=== PATIENT | female | born 1955 | race Caucasian/White ===

== ENCOUNTER 2024-04-03 09:17 | Emergency (ER) | payer MEDICARE, SELFPAY ==
[2024-04-03 09:32] VITALS: BP 129/84; PULSE 79; RESP 20; TEMP 36.8; O2SAT 98
--- NOTE | 2024-04-03 09:58 | ED.DENTAL ---
HPI - Dental/Oral General Chief complaint: Dental/Oral Stated complaint: Absess Tooth Time Seen by Provider: 04/03/24 09:58 Source: patient, RN notes reviewed and old records reviewed Mode of arrival: ambulatory Limitations: no limitations History of Present Illness HPI Narrative: 69-year-old female to [facility] Care with complaint of right upper dental pain for 2 days. Patient reports that she does not have a dentist and is going to start looking for one soon. Patient denies drainage, fever, difficulty breathing, difficulty swallowing , allergies. Patient able to tolerate fluids by mouth. Patient resting comfortably in exam room in no acute distress. Respirations even and nonlabored. Related Data Home Medications Medication Instructions Recorded Confirmed losartan 25 mg tablet 25 mg PO DAILY 04/03/24 04/03/24 ropinirole 0.25 mg tablet 0.25 mg PO DAILY 04/03/24 04/03/24 Allergies Allergy/AdvReac Type Severity Reaction Status Date / Time No Known Allergies Allergy Verified 04/03/24 09:48 Review of Systems Review of Systems: All systems reviewed & are unremarkable except as noted in HPI and below Constitutional: Constitutional: Reports no additional constitutional complaints Eyes: Eyes: Reports no additional eye complaints ENT: Reports as per HPI and Reports dental pain Cardiovascular: Cardiovascular: Reports no additional cardiovascular complaints, Denies chest pain and Denies dyspnea Respiratory: Respiratory: Reports no additional respiratory complaints, Denies cough and Denies dyspnea Musculoskeletal: Musculoskeletal: Reports no additional musculoskeletal complaints Neurologic: Reports system reviewed and no additional complaints, except as documented Psychiatric: Psychiatric: Reports no additional psychiatric complaints PMFSH Comments At the time of my signature, I reviewed and agree with the nursing past medical, surgical, social, and family history. There is no relevant family history pertinent to the patient complaint. Exam Const: General: cooperative, healthy appearing, no acute distress, alert, uncomfortable and well nourished Nutritional Appearance: well nourished Orientation/consciousness: patient oriented x3 Limitations: no limitations HENMT: Head: normal to inspection Ears: external ears normal Face/Nose/Sinus: Normal external nose present, Normal nares present, normal facial exam, No erythema and No edema Face and sinus: normal facial exam, no erythema and no edema Teeth and gingiva: abnormal tooth and associated gingiva upper right tender, avulsed and with associated gingival edema ( 1st and 3rd molar) Eyes: General: appearance normal, both eyes and all related structures Neck: Neck: normal visual inspection, full ROM and no meningeal signs Lymphatic: no lymphadenopathy noted and no lymphedema noted Chest: Chest palpation & inspection: normal inspection of the chest Resp: Effort & Inspection: normal respiratory effort and able to speak in complete sentences Auscultation: clear to auscultation bilaterally Cardio: Jugular venous distension: no JVD Rate: regular rate Rhythm: regular rhythm Back/Spine/Pelvis: Cervical Spine: cervical ROM normal Skin: General skin exam: normal color, no rashes or lesions noted and turgor normal Neuro: General: patient oriented x3, gait normal, moves all extremities and no meningeal signs Speech: normal speech Gait exam (Neuro): Normal gait present Extrem: General: normal to inspection, full ROM and capillary refill normal Psych: Appearance: grossly normal and well kempt Course Course Emergency Course: Some parts of this dictation were generated by voice recognition software and may contain typographical and/or grammatical inaccuracies. Level of Care: Express Care Visit Vital Signs Vital signs: Vital Signs Temperature 36.8 C 04/03/24 09:32 Pulse Rate 79 04/03/24 09:32 Respiratory Rate 20 04/03/24 09:32 Blood Pressure 129/84 04/03/24 09:32 Pulse Oximetry 98 04/03/24 09:32 Oxygen Delivery Room Air 04/03/24 09:32 Temperature 36.8 C 04/03/24 09:32 Pulse Rate 79 04/03/24 09:32 Respiratory Rate 20 04/03/24 09:32 Blood Pressure 129/84 04/03/24 09:32 Pulse Oximetry 98 04/03/24 09:32 Oxygen Delivery Room Air 04/03/24 09:32 reviewed MDM - Dental/Oral MDM Narrative Medical decision making narrative: 69-year-old female to [facility] Care with complaint of right upper dental pain for 2 days. Patient reports that she does not have a dentist and is going to start looking for one soon. Patient denies drainage, fever, difficulty breathing, difficulty swallowing , allergies. Patient able to tolerate fluids by mouth. Patient resting comfortably in exam room in no acute distress. Respirations even and nonlabored. On exam, right upper 1st and 3rd molars level is with surrounding gingival erythema and edema. No drainage present. Patient is sitting comfortably in exam room nontoxic in appearance. Patient appropriate for outpatient treatment and follow-up. Discharge instructions reviewed with patient, as well as provided in writing per nursing staff. The instructions also include specific and strict return/GO TO THE ER as well as f/u information. All questions have been answered, and the patient deny any further questions with discharge and discharge plan. Some parts of this dictation were generated by voice recognition software and may contain typographical and/or grammatical inaccuracies. Differential Diagnosis Differential diagnosis: Likely gingival abscess, dental caries, toothache, dental abscess, fracture of tooth and aphthous ulcer Discharge Plan Discharge Clinical Impression: Dental abscess, Toothache, Fracture of tooth, Dental caries Patient Disposition: Home, Self-Care Condition: Stable Instructions: Antibiotic Form Additional Instructions: Finish the entire course of antibiotics & use the mouthwash. After every time you eat be sure to use salt water gargles. Apply ice to face to help with pain. Dental problems can lead to other problems, so this is important to follow up with a dental provider. To solve the problem, You need to follow up with a dental provider, a list has been given to you. Please follow up with your dentist as soon as possible. Take Ibuprofen as prescribed for pain and to decrease swelling- take this with food Follow up with a Primary Care Provider (PCP) about medical needs. A PCP can help keep you healthy by preventive medicine and screening. Return to Urgent care or go to the ER for New or worsening symptoms. Prescriptions: New penicillin V potassium 500 mg tablet 500 mg PO QID 7 Days Qty: 28 0RF chlorhexidine gluconate [Peridex] 0.12 % mouthwash 15 ml mucous membrane BID Qty: 473 0RF No Action losartan 25 mg tablet 25 mg PO DAILY ropinirole 0.25 mg tablet 0.25 mg PO DAILY Follow-up/Referrals: PHYSICIAN,SUPPLY TECHNICIAN [Primary Care Provider] - Stand Alone Forms: Work/School Release IP
== END 2024-04-03 10:10 | disposition home or self-care (01) ==
PROVIDERS: Emergency Provider Nurse Practitioner Family
DX: K04.7 Periapical abscess without sinus (principal); K02.9 Dental caries, unspecified; S02.5XXA Fracture of tooth (traumatic), initial encounter for closed fracture; I10 Essential (primary) hypertension; G25.81 Restless legs syndrome
CPT/HCPCS: 99203; G0463